=== PATIENT | female | born 2000 | race Caucasian/White ===

== ENCOUNTER 2018-10-03 13:13 | Outpatient (CLI) | payer OTHER ==
[2018-10-03 15:03] VITALS: BP 120/70; PULSE 120; RESP 16; TEMP 98.1
--- NOTE | 2018-10-13 09:55 | P.MSEPDOC ---
Presenting Problems - Arrival Data Date of Arrival on Unit: 10/03/18 Time of Arrival on Unit: 13:19 Mode of Transport: Ambulatory - Complaint OB-Reason for Admission/Chief Complaint: Vaginal Bleeding Comment: pt DOM has had with dr mario pt has a cerclage pt arrived c/o bleeding and cramping. pt had no blood in her pants. cervix checked closed with cerclage felt with small amt of brownish dicharge on exam glove after vaginal exam Medical History - Information : 2 Para: 0 Term: 0 : 0 Abortions: Spontaneous or Elective: 1 Number of Living Children: 0 - Gestational Age Gestational Age by LYUBOV (wks/days): 30 Weeks and 0 Days - History Complications: Incompetent Cervix, Smoker Review of Systems - Review of Systems Constitutional: No problems Breast: No problems ENT: No problems Cardiovascular: No problems Respiratory: No problems Gastrointestinal: No problems Genitourinary: No problems Musculoskeletal: No problems Neurological: No problems Skin: No problems Vital Signs - Temperature Temperature: 98.1 F Temperature Source: Oral - Pulse Right Brachial Pulse Rate: 120 Pulse Assessment Method: Automatic Cuff - Respirations Respiratory Rate: 16 Oxygen Delivery Method: Room Air O2 Sat by Pulse Oximetry: 98 - Blood Pressure Right Arm Blood Pressure: 120/70 Blood Pressure Mean: 86 Blood Pressure Source: Automatic Cuff Medical Screen Scoring (Pre) - Cervical Exam Dilation: 0 cm = 0 Membranes: Intact - Uterine Contractions Frequency: N/A Duration: N/A Intensity: N/A - Maternal Vital Signs Maternal Temperature: N/A Signs of Preeclampsia: N/A Maternal Respirations: N/A - Pain Assessment Pain Location and Character: Abdomen Pain Scale Used: FLACC (1-3yrs) Pain Intensity: 3 Pain Management Goal: 2 Pain Behavior: Vocalization Pain Aggravating Factors: Position Non-Pharmacological Interventions: Relaxation Technique - Maternal Trauma Maternal Trauma: N/A - Assessment Baseline FHR: 130 Heart Rate - NICHD Category: Category I (Normal) = 0 NST: Reactive Position: N/A Station: N/A - Total Score Total Score (Pre): 0 - Level of Risk Level of Risk: Low (0-5) Physician Notification (Pre) - Physician Notified Physician Notified Date: 10/03/18 Physician Notified Time: 14:50 Spoke With: dr holloway New Order Received: Yes - Notification Comment Comment: cervix closed with cerclage intact with no active bleeding noted. small amt of brownish dicharge noted on exam glove after vaginally exam. pt to f/u wit her doctor tomorrow Physician Notification (Post) - Physician Notified Physician Notified Date: 10/03/18 Physician Notified Time: 14:50 Spoke With: dr holloway New Order Received: Yes - Notification Comment Comment: may dicharge to home Disposition - Disposition OB Disposition: Discharge to home Discharge Date: 10/03/18 Discharge Time: 14:50 I agree with the RN Medical Screening Exam: Yes Risk & Benefit of care provided described in d/c instruction: Yes Diagnosis: FALSE LABOR BEFORE 37 COMPLETED WEEKS OF GEST, THIRD TRI
== END 2018-10-03 14:50 | disposition home or self-care (01) ==
LOC: FBPOP 13:13
PROVIDERS: ATTEND Obstetrics & Gynecology
DX: O47.03 False labor before 37 completed weeks of gestation, third trimester (principal); O99.333 Smoking (tobacco) complicating pregnancy, third trimester; Z3A.30 30 weeks gestation of pregnancy
CPT/HCPCS: 59025; 99213